=== PATIENT | female | born 1985 | race Hispanic/Latino ===

== ENCOUNTER 2018-04-04 06:22 | Inpatient (IN) | payer MEDICAID, SELFPAY ==
[2018-04-04 06:52] VITALS: BMI 29.5
[2018-04-04] MEDS ORDERED: Penicillin G Potassium 5 MILL.UNITS VIAL ONE (07:03)
[2018-04-04] MEDS ORDERED: Lidocaine 1% (PF) 30 ML VIAL ONE (07:06)
[2018-04-04] MEDS ORDERED: NS / Oxytocin 40 units/1000ml 1,000 ML ONE (07:07)
[2018-04-04] MEDS ORDERED: NS / Oxytocin 40 units/1000ml 1,000 ML IV PRN (07:08)
[2018-04-04] MEDS ORDERED: Ibuprofen 800 MG TAB PO PRN (07:08)
[2018-04-04] MEDS ORDERED: Ondansetron PF 4 MG/2 ML Vial IVP PRN ×2 (07:08→09:30)
[2018-04-04] MEDS ORDERED: Acetaminophen 500 MG TAB PO PRN (07:08)
[2018-04-04] MEDS ORDERED: HYDROcodone/Acetaminophen 5/325 mg Tablet PO PRN ×2 (07:08)
[2018-04-04] MEDS ORDERED: Lidocaine 1% (PF) 30 ML VIAL SC PRN (07:08)
[2018-04-04] MEDS ORDERED: Penicillin G Potassium 5 MILL.UNITS in Sodium Chloride 0.9% 100 ML IVPB SCH (07:15)
[2018-04-04] MEDS ORDERED: Lactated Ringer's 1,000 ML IV SCH ×2 (07:15)
[2018-04-04 07:43] LABS: Hemoglobin 13.3 g/dL (12.0-16.0); Mean Corpuscular HGB CONC 32.8 g/dL (32.0-36.0); Mean Corpuscular Hemoglobin 26.7 pg (27.0-31.0); Mean Corpuscular Volume 81.5 fL (78.0-98.0); RBC Distribution Width 14.6 % (11.5-14.5); Red Blood Cell (RBC) Count 4.99 mill/uL (4.20-5.40); White Blood Cell (WBC) Count 9.3 thou/uL (4.8-10.8)
[2018-04-04 08:00] LABS: Mean Platelet Volume 12.1 fL (7.4-10.4); Platelet Count 122 thou/uL (130-400)
[2018-04-04 08:14] LABS: HBSAg Index 0.22 S/CO (0-0.99); Hep B Surf Ag Non-Reactive S/CO (NonReactive)
[2018-04-04 08:24] LABS: Syphilis Antibody Nonreactive (Nonreactive); Syphilis Antibody Index 0.03 S/CO (<1.00 Non-Reactive)
--- NOTE | 2018-04-04 08:29 | PDOC.FPROB ---
FMR OB H&P: HPI - History of Present Illness Chief Complaint: contractions Indentification: at 38.6 wks by 12.3 wk sono History of Present Illness: Patient with history of c/s x1 and successful w/ vacuum assistance x1 comes in with contractions. Started about 0400. Mild bloody show and minimal FMR OB H&P: Medications - Current Home Medications: Medication Instructions Recorded Confirmed Type Iron,Carbonyl [Iron Chews] 1 tablet PO DAILY 10/20/15 04/04/18 History Vitamin 1 tablet PO DAILY 10/20/15 04/04/18 History Allergies/Adverse Reactions: Allergies Allergy/AdvReac Type Severity Reaction Status Date / Time No Known Allergies Allergy Verified 04/04/18 06:46 FMR OB H&P: Vital Signs - Maternal Vital signs: Vital Signs - First Documented Temp Pulse Resp BP 98.5 F 86 18 123/84 04/04/18 06:45 04/04/18 06:45 04/04/18 06:45 04/04/18 06:45 FMR OB H&P: Results - Labs Lab results: Laboratory Results - last 24 hr 04/04/18 07:21 WBC 9.3 RBC 4.99 Hgb 13.3 Hct 40.6 MCV 81.5 MCH 26.7 L MCHC 32.8 RDW 14.6 H FMR OB H&P: A/P Discussion: Date/Time: 04/04/1844 This H&P was discussed with [] and [] who agree with the above documentation and plan.
--- NOTE | 2018-04-04 08:38 | PDOC.EVN ---
Event Note - Event Note Event Note: Paper H&P in chart came in with contractions starting at 0400 PMH: none PSH: c/s x1, w/ vacuum assisted delivery x1 OB Hx: GDMA1 Blood type: O+, abs neg IOB labs WNL quad screen neg GBS + 1 dose of penicillin given before delivery presented at 0700 delivered at 0802 by weight 7lbs 13 oz Apgars: 7, 9 thick mec, nuchal cord x1 easily reduced
[2018-04-04] MEDS ORDERED: Penicillin G 2.5 MILL.units 2.5 MILL.UNITS in Premix Bag 1 BAG IVPB SCH (09:00)
[2018-04-04] MEDS ORDERED: Adacel (T-DAP) 0.5 ML SYRINGE IM ONE (09:30)
[2018-04-04] MEDS ORDERED: Lanolin Ointment 7 GM TUBE TOP PRN (09:30)
[2018-04-04] MEDS ORDERED: NS / Oxytocin 40 units/1000ml 1,000 ML IV SCH (09:30)
[2018-04-04] MEDS ORDERED: Bisacodyl 10 MG SUPP PR PRN (09:30)
[2018-04-04] MEDS ORDERED: Milk Of Magnesia 30 ML UDCUP PO PRN (09:30)
[2018-04-04 10:44] LABS: Actual Bicarbonate (HCO3a) 24.4 mEq/L (22-28); Analyzer IN Cardio OR; Base Excess (BEa) -3.2 mEq/L (-2.0 to +3.0)
[2018-04-04] MEDS: Docusate Calcium (SURFAK) 240 MG CAP PO SCH ×2 (11:32→23:00)
[2018-04-04] MEDS: Ibuprofen 800 MG TAB PO SCH ×2 (14:54→23:00)
[2018-04-04] MEDS: Ferrous Sulfate 325 MG TAB PO SCH (16:26)
[2018-04-05] MEDS: Ibuprofen 800 MG TAB PO SCH ×3 (05:51→21:41)
--- NOTE | 2018-04-05 06:13 | PDOC.PP ---
Post Progress Note Post Day #: 1 Subjective: Doing well this AM. No significant overnight events. Tolerating PO. Ambulating without difficulty. PO intake tolerated: yes Flatus: yes Ambulation: yes Vital Signs (12 hours) Pulse Ox 04/04/18 20:00 100 Weight Weight 75.75 kg - Physical Examination General: NAD Cardiovascular: no m/r/g, RRR Respiratory: clear to auscultation bilaterally, non-labored breathing Abdominal: + bowel sounds, lochia (minimal), no distention, appropriately TTP Neurological: no gross focal deficits Psychiatric: A&Ox3, normal affect Result Diagrams: 04/05/18 05:47 Additional Labs: Post Labs Blood Type O POSITIVE 04/04/18 07:21 Hep Bs Antigen Non-Reactive S/CO (NonReactive) 04/04/18 07:21 (1) Term delivered Code(s): O80 - ENCOUNTER FOR FULL-TERM UNCOMPLICATED DELIVERY Status: Acute (2) Positive GBS test Code(s): B95.1 - STREPTOCOCCUS, GROUP B, CAUSING DISEASES CLASSD ELSWHR Status : Acute (3) Anemia affecting Code(s): O99.019 - ANEMIA COMPLICATING , UNSPECIFIED TRIMESTER Status : Acute (4) Gestational diabetes mellitus Code(s): O24.419 - GESTATIONAL DIABETES MELLITUS IN , UNSP CONTROL Status: Acute - Assessment/Plan 32 year old G3 now P3 at 38.6 wks delivered TAGA M infant at 08:02 on 04/04 via . 1. TIUP, delivered - No complications - Routine PP care - Contraception: Significant other getting vasectomy - Lochia minimal 2. Anemia of - H&H stable - QBL 489 mL 3. GBS positive, inadequately treated - Penicillin x1 - Will obs infant for 48 hours 4. GDMA1 - Diet controlled 5. - Successful - 2nd - No complications Dispo: Stable. D/t inadequately treated GBS will plan to keep mom/baby for 48 hours. Addendum - Attending - Attending Attestation Date/Time: 04/06/18 0808 I personally evaluated the patient and discussed the management with Dr. Hylton. I agree with the History, Examination, Assessment and Plan documented above.
[2018-04-05 06:35] LABS: Hemoglobin 11.3 g/dL (12.0-16.0); Mean Corpuscular HGB CONC 32.6 g/dL (32.0-36.0); Mean Corpuscular Hemoglobin 27.2 pg (27.0-31.0); Mean Corpuscular Volume 83.3 fL (78.0-98.0); Mean Platelet Volume 10.8 fL (7.4-10.4); Platelet Count 112 thou/uL (130-400); RBC Distribution Width 14.7 % (11.5-14.5); Red Blood Cell (RBC) Count 4.15 mill/uL (4.20-5.40)
[2018-04-05] MEDS: Ferrous Sulfate 325 MG TAB PO SCH ×2 (07:32→16:03)
[2018-04-05] MEDS: Docusate Calcium (SURFAK) 240 MG CAP PO SCH ×2 (09:34→21:41)
--- NOTE | 2018-04-05 10:50 | DN ---
DATE OF PROCEDURE: 04/04/2018 DELIVERING PHYSICIAN: Dr. Senthil Wray. PROCEDURE PERFORMED: Spontaneous vaginal delivery. ANESTHESIA: Local lidocaine for repair. QBL: 49 mL. PREOPERATIVE DIAGNOSES: 1. Term intrauterine in labor. 2. Anemia of . 3. GBS positive. 4. TOLAC after previous successful . POSTOPERATIVE DIAGNOSES: 1. Term intrauterine , delivered. 2. Anemia of . 3. GBS positive. 4. TOLAC after previous successful . INDICATIONS: A 32-year-old, G3, P2 female, presented in active labor with contractions starting about 2 hours before presentation to Labor and Delivery. DELIVERY NOTE: This is a 32-year-old, G3, P3-0-0-3 at 38 and 6 weeks by 12.3 week ultrasound, who delivered a viable male at 0802 hours on 04/04/2018. Following a precipitous intrapartum course, a vigorous male infant was delivered over an intact peritoneum in the left occiput anterior position. Anterior shoulder and then the remainder of the body were delivered. Nuchal cord x1 easily reduced. Head was held down. The mouth and nares were bulb suctioned. Cord clamped and cut and cord blood collected. Cord gas was taken as well. Thick meconium was noted at time of delivery. Placenta delivered intact with a 3-vessel cord noted. Fundal massage was performed, and the fundus was firm. The cervix and vagina were inspected and found to have a second-degree perineal laceration. Laceration noted and repaired with 3-0 Vicryl in the usual running locking fashion with good approximation and hemostasis. After local anesthetic, 1% lidocaine was used and injected at this site. went to the nursery in good condition for routine care. Apgars were 7 and 9 at one and five minutes respectively. weight was 7 pounds and 13 ounces. The patient tolerated delivery well and went to the after routine recovery care. Baby will be kept 48 hours secondary to inadequate GBS prophylaxis. Attending Note: I was present for the entire delivery and repair. Fernando Job ID: [id number] [facility]
[2018-04-06] MEDS: Ibuprofen 800 MG TAB PO SCH (05:29)
--- NOTE | 2018-04-06 07:08 | PDOC.PP ---
Post Progress Note Post Day #: 2 Subjective: Feeling well this morning. No concerns and feels ready to go home today. PO intake tolerated: yes Flatus: yes Ambulation: yes Vital Signs (12 hours) Temp Pulse Resp BP Pulse Ox 04/05/18 20:40 98.1 F 93 18 106/55 L 98 Weight Weight 75.75 kg - Physical Examination General: NAD Cardiovascular: no m/r/g, RRR Respiratory: clear to auscultation bilaterally, non-labored breathing Abdominal: + bowel sounds, lochia (scant), no distention, appropriately TTP Fundus firm & at: umbilicus Extremities: negative homans (B) (no calf tenderness) Skin: no rash Neurological: no gross focal deficits Psychiatric: A&Ox3, normal affect Result Diagrams: 04/05/18 05:47 Additional Labs: Post Labs Blood Type O POSITIVE 04/04/18 07:21 Hep Bs Antigen Non-Reactive S/CO (NonReactive) 04/04/18 07:21 (1) Term delivered Code(s): O80 - ENCOUNTER FOR FULL-TERM UNCOMPLICATED DELIVERY Status: Acute (2) Positive GBS test Code(s): B95.1 - STREPTOCOCCUS, GROUP B, CAUSING DISEASES CLASSD ELSWHR Status : Acute (3) Anemia affecting Code(s): O99.019 - ANEMIA COMPLICATING , UNSPECIFIED TRIMESTER Status : Acute (4) Gestational diabetes mellitus Code(s): O24.419 - GESTATIONAL DIABETES MELLITUS IN , UNSP CONTROL Status: Acute - Assessment/Plan 32 year old G3 now P3 at 38.6 wks delivered TAGA M infant at 08:02 on 04/04 via . 1. TIUP, delivered - No complications - Routine PP care - Contraception: Significant other getting vasectomy - Lochia minimal 2. Anemia of - H&H stable - QBL 489 mL 3. GBS positive, inadequately treated - Penicillin x1 - Will obs for 48 hours 4. GDMA1 - Diet controlled 5. - Successful - 2nd - No complications Dispo: Plan for discharge later this morning. Addendum - Attending - Attending Attestation Date/Time: 04/07/18 0685 I personally evaluated the patient and discussed the management with Dr. Hylton I agree with the History, Examination, Assessment and Plan documented above with any addition or exceptions noted below.
[2018-04-06 08:29] VITALS: BP 106/56; TEMP 98.3
[2018-04-06] MEDS: Ferrous Sulfate 325 MG TAB PO SCH (08:55)
[2018-04-06] MEDS: Docusate Calcium (SURFAK) 240 MG CAP PO SCH (08:58)
== END 2018-04-06 11:30 | disposition home or self-care (01) | DRG 807 ==
LOC: L&D/OP 06:22 → L&D 08:41 → 3SW 11:09
PROVIDERS: ADMIT Obstetrics & Gynecology; ATTEND Obstetrics & Gynecology
PROC: 10E0XZZ Delivery of Products of Conception, External Approach (ICD-10-PCS; principal; 2018-04-04)
PROC: 0KQM0ZZ Repair Perineum Muscle, Open Approach (ICD-10-PCS; 2018-04-04)
DX: O62.3 Precipitate labor (principal); Z37.0 Single live birth; O77.0 Labor and delivery complicated by meconium in amniotic fluid; O69.81X0 Labor and delivery complicated by cord around neck, without compression, not applicable or unspecified; O34.219 Maternal care for unspecified type scar from previous cesarean delivery; O99.02 Anemia complicating childbirth; D64.9 Anemia, unspecified; O99.824 Streptococcus B carrier state complicating childbirth; O24.420 Gestational diabetes mellitus in childbirth, diet controlled; O70.1 Second degree perineal laceration during delivery; Z3A.38 38 weeks gestation of pregnancy
CPT/HCPCS: 36415; 82805; 85027; 86780; 86850; 86900; 86901; 87340; 99285; J2001; J2540